=== PATIENT | male | born 1990 | race Caucasian/White ===

== ENCOUNTER 2019-06-07 14:03 | Emergency (ER) | payer OTHER ==
[~2019-06-07] VITALS: Ht 175.3 cm; Wt 102.7 kg
[2019-06-07] MEDS ORDERED: BUSP10TA PO (14:10)
[2019-06-07] MEDS ORDERED: SERT-141 PO (14:10)
--- NOTE | 2019-06-07 14:43 | REP ---
Right ankle: Four views. History: Injury in a fall. Findings: There is mild anterolateral soft tissue swelling. The ankle mortise is intact. No fracture is visible. Impression: Anterolateral soft-tissue swelling. No fracture seen. Electronically Signed by Migel Pace MD 06/07/2019 02:34 P
[2019-06-07 16:31] VITALS: BP 125/67
== END 2019-06-07 16:35 | disposition home or self-care (01) ==
LOC: M ED 14:03
DX: S93.401A Sprain of unspecified ligament of right ankle, initial encounter (principal); X50.1XXA Overexertion from prolonged static or awkward postures, initial encounter; Y92.89 Other specified places as the place of occurrence of the external cause; Y93.02 Activity, running; Y99.1 Military activity; Z79.899 Other long term (current) drug therapy

== ENCOUNTER 2020-05-22 00:47 | Emergency (ER) | payer OTHER ==
[~2020-05-22] VITALS: Ht 175.3 cm; Wt 108.5 kg
[2020-05-22 00:47] VITALS: BP 167/82
[~2020-05-22 00:47] MED LIST: BUSP10TA PO; SERT-141 PO
[2020-05-22] MEDS ORDERED: LIDOCAINE 1% MDV 20ML VIAL SC ONE (01:15)
== END 2020-05-22 01:43 | disposition home or self-care (01) ==
LOC: M ED 00:47
DX: S01.111A Laceration without foreign body of right eyelid and periocular area, initial encounter (principal); W22.8XXA Striking against or struck by other objects, initial encounter; Y92.099 Unspecified place in other non-institutional residence as the place of occurrence of the external cause; Y93.89 Activity, other specified; Y99.9 Unspecified external cause status; Z79.899 Other long term (current) drug therapy

== ENCOUNTER 2020-07-12 16:33 | Emergency (ER) | payer OTHER ==
[~2020-07-12] VITALS: Ht 175.3 cm; Wt 110.0 kg
--- OUTSIDE RECORDS SUMMARY | 2020-07-12 16:38 | CCD ---
Author Author [facility] Organization [facility] Address Unknown Phone Unavailable Care Team Providers Care Real Estate Developer Name Role Phone REEVES PETER Unavailable Unavailable Re-disclosure Warning The records that you are about to access may contain information from federally-assisted alcohol or drug abuse programs. If such information is present, then the following federally mandated warning applies: This information has been disclosed to you from records protected by federal confidentiality rules (42 CFR part 2). The federal rules prohibit you from making any further disclosure of this information unless further disclosure is expressly permitted by the written consent of the person to whom it pertains or as otherwise permitted by 42 CFR part 2. A general authorization for the release of medical or other information is NOT sufficient for this purpose. The Federal rules restrict any use of the information to criminally investigate or prosecute any alcohol or drug abuse patient.The records that you are about to access may contain highly sensitive health information, the redisclosure of which is protected by Article 27-F of the [facility] Public Health law. If you continue you may have access to information: Regarding HIV / AIDS; Provided by facilities licensed or operated by the [facility] Office of Mental Health; or Provided by the [facility] Office for People With Developmental Disabilities. If such information is present, then the following [facility] mandated warning applies: This information has been disclosed to you from confidential records which are protected by state law. State law prohibits you from making any further disclosure of this information without the specific written consent of the person to whom it pertains, or as otherwise permitted by law. Any unauthorized further disclosure in violation of state law may result in a fine or skilled nursing sentence or both. A general authorization for the release of medical or other information is NOT sufficient authorization for further disc losure. Encounters Encounter Providers Location Date Indications Data Source(s ) Outpatient Attender: PRO REEVES, 02/02/2020 11:19:08 AM EDT - 02/03/2020 05:30:[address] [facility] Patient discharged. Insurance Providers Payer name Policy type / Coverage type Policy ID Covered green party ID Covered green party's relationship to ascencio Policy Asc[employer] Plan Information [facility] [employer] [id number] SP [id number] [facility] [employer] - O/P [id number] 18 [id number] [employer] [id number] SP [id number] Problems, Conditions, and Diagnoses Code Display Name Description Problem Type Effective Dates Data Source(s) G4489 Other headache syndrome Other headache syndrome Diagno sis 02/02/2020 08:00:[address] [facility] G4700 Insomnia, unspecified Insomnia, unspecified Diagnosis 02/02/2020 08:00:[address] [facility] R0683 Snoring Snoring Diagnosis 02/02/2020 08:00:[address] [facility] R400 Somnolence Somnolence Diagnosis 02/02/2020 08:00:00 PM ED [facility]
--- OUTSIDE RECORDS SUMMARY | 2020-07-12 17:07 | CCD ---
Author Author [facility] Organization [facility] Address Unknown Phone Unavailable Care Team Providers Care Ocular Care Technologist Name Role Phone REEVES PETER Unavailable Unavailable [...] is protected by Article 27-F of the [facility] Public Health law. If you continue you may have access to information: Regarding HIV / AIDS; Provided by facilities licensed or operated by the [facility] Office of Mental Health; or Provided by the [facility] Office for People With Developmental Disabilities. If such information is present, then the following [facility] mandated warning applies: This information has been [...] law may result in a fine or snf sentence or both. A general authorization for the release of medical or other information is NOT sufficient authorization for further disc losure. Encounters Encounter Providers Location Date Indications Data Source(s ) Outpatient Attender: PRO REEVES, 02/02/2020 11:19:08 AM EDT - 02/03/2020 05:30:00 AM EDT [facility] Patient discharged. Insurance Providers Payer name Policy type / Coverage type Policy ID Covered libertarian ID Covered libertarian's relationship to ascencio Policy Ascencio Plan Information [facility] [employer] [id number] SP [id number] [facility] [employer] - O/P [id number] 18 [id number] [employer] [id number] SP [id number] Problems, Conditions, and Diagnoses Code Display Name Description Problem Type Effective Dates Data Source(s) G4489 Other headache syndrome Other headache syndrome Diagno sis 02/02/2020 08:00:00 PM EDT [facility] G4700 Insomnia, unspecified Insomnia, unspecified Diagnosis 02/02/2020 08:00:00 PM EDT [facility] R0683 Snoring Snoring Diagnosis 02/02/2020 08:00:00 PM ED T [facility] R400 Somnolence Somnolence Diagnosis 02/02/2020 08:00:00 PM ED [facility]
[2020-07-12 19:42] VITALS: BP 146/76
== END 2020-07-12 19:43 | disposition home or self-care (01) ==
LOC: M ED 16:33
DX: H92.02 Otalgia, left ear (principal); Z20.828 Contact with and (suspected) exposure to other viral communicable diseases; Z79.899 Other long term (current) drug therapy
CPT/HCPCS: 99283; U0003

== ENCOUNTER 2022-10-22 12:48 | Emergency (ER) | payer OTHER ==
[~2022-10-22] VITALS: Ht 175.3 cm; Wt 123.7 kg
[2022-10-22] MEDS ORDERED: DULO1CAP4 (13:06)
[2022-10-22] MEDS ORDERED: LOSA25TA13 PO (13:06)
[2022-10-22 15:59] VITALS: BP 133/87
== END 2022-10-22 16:00 | disposition home or self-care (01) ==
LOC: M ED 12:48
DX: S06.0X0A Concussion without loss of consciousness, initial encounter (principal); W22.09XA Striking against other stationary object, initial encounter; Y92.89 Other specified places as the place of occurrence of the external cause; Y93.89 Activity, other specified; Y99.8 Other external cause status; F41.9 Anxiety disorder, unspecified; F32.A Depression, unspecified; F17.200 Nicotine dependence, unspecified, uncomplicated; Z88.5 Allergy status to narcotic agent